=== PATIENT | female | born 1960 | race Asian ===

== ENCOUNTER 2022-11-01 04:19 | Day surgery (SDC) | payer OTHER ==
[2022-10-28 12:07] VITALS: BMI 20.3
[2022-11-01 08:47] VITALS: BP 124/63; PULSE 68; RESP 18; TEMP 98
== END 2022-11-01 08:50 | disposition home or self-care (01) ==
LOC: JASU-ENDO 04:19
PROVIDERS: ATTEND Internal Medicine Gastroenterology
PROC: 0DJD8ZZ Inspection of Lower Intestinal Tract, Via Natural or Artificial Opening Endoscopic (ICD-10-PCS; principal; 2022-11-01 08:00)
DX: Z12.11 Encounter for screening for malignant neoplasm of colon (principal)